=== PATIENT | male | born 1945 | race Caucasian/White ===

== ENCOUNTER 2022-08-25 07:55 | Day surgery (SDC) | payer OTHER ==
[~2022-08-25] VITALS: Ht 172.7 cm; Wt 104.0 kg
[2022-08-25] MEDS ORDERED: AMLO5 PO (08:25)
[2022-08-25] MEDS ORDERED: ATOR40TA PO (08:25)
[2022-08-25] MEDS ORDERED: GLIM2 PO ×2 (08:26)
[2022-08-25] MEDS ORDERED: LOSA50 PO (08:27)
[2022-08-25] MEDS ORDERED: METO100ER PO (08:27)
[2022-08-25] MEDS ORDERED: Isosorbide Mono30 MG PO (08:27)
[2022-08-25] MEDS ORDERED: METF500 PO (08:28)
--- NOTE | 2022-08-25 09:50 | NUR ---
PT TO RECOVERY ROOM POST PROCEDURE. PT AWAKE AND CONVERSING APPROPRIATELY; DENIES PAIN POST PROCEDURE. MONITOR SR 70'S, B/P 111/80, SPO2 69% RA, AFEBRILE. R RADIAL SITE NO SWELLING/HEMATOMA, TR BAND IN PLACE 12 ML AIR; RUE POSITIVE PLEUTH POST TR BAND PLACEMENT. PT TAKING COFFEE WITHOUT ISSUE.
--- NOTE | 2022-08-25 12:10 | NUR ---
P AMB IN ROOM WITHOUT ISSUE, SITE UNCHANGED. PT DRESSED SELF WITHOUT ISSUE, SITE UNCHANGED. TR BAND REMOVED, CLOTH DOT AND WRIST IMMOBILIER PLACED; IV REMOVED-CANNULA INTACT. PT DECLINED SLING.
--- NOTE | 2022-08-25 12:21 | NUR ---
PT AND FRIEND RECEIVED DISCHARGE INSTRUCTIONS, MED LIST, CD, AND AFTER CARE INSTRUCTIONS; VERBALIZED GOOD UNDERSTANDING. PT LEFT FACILITY VIA W/C, CONDITION STABLE.
== END 2022-08-25 12:21 | disposition home or self-care (01) ==
LOC: MHTC 07:55
DX: I35.0 Nonrheumatic aortic (valve) stenosis (principal); R07.9 Chest pain, unspecified; I25.10 Atherosclerotic heart disease of native coronary artery without angina pectoris; I25.2 Old myocardial infarction; I50.30 Unspecified diastolic (congestive) heart failure; E11.22 Type 2 diabetes mellitus with diabetic chronic kidney disease; N18.9 Chronic kidney disease, unspecified; E78.5 Hyperlipidemia, unspecified
CPT/HCPCS: 76937; 93454; 99152; A9270; C1769; C1887; C1894; J1644; J2250; J3010; J7030; J7050; Q9967

== ENCOUNTER → 2023-08-28 | Outpatient (CLI) | payer OTHER ==
[~2023-08-28] MED LIST: AMLO5 PO; ATOR40TA PO; GLIM2 PO; Isosorbide Mono30 MG PO; LOSA50 PO; METF500 PO; METO100ER PO
[2023-08-28 17:14] LABS: Microalb/Creat Ratio UR, Rand 332.639 mg/g (0.000-30.000)
== END ==
LOC: LAB 14:20 → LAB SHORT 14:20
PROVIDERS: Family Medicine
DX: E11.21 Type 2 diabetes mellitus with diabetic nephropathy (principal)
CPT/HCPCS: 82043; 82570

== ENCOUNTER 2024-02-13 16:06 | Inpatient (IN) | payer OTHER ==
[~2024-02-13] VITALS: Ht 172.7 cm; Wt 94.0 kg
[2024-02-13 16:53] LABS: BASOPHILS ABSOLUTE AUTO 0.03 K/mm3 (0.00-0.23); BASOPHILS PERCENT AUTO 0 % (0-2); EOSINOPHILS PERCENT AUTO 0 % (0-6); Hematocrit 25.8 % (37.0-53.0); Hemoglobin 8.5 g/dL (13.5-17.5); IMMATURE GRAN ABSOLUTE AUTO 0.25 K/mm3 (0.00-0.10); IMMATURE GRAN PERCENT AUTO 2 % (0-1); LYMPHOCYTES ABSOLUTE AUTO 0.43 K/mm3 (0.84-5.20); LYMPHOCYTES PERCENT AUTO 3 % (21-46); MONOCYTES ABSOLUTE AUTO 0.49 K/mm3 (0.16-1.47); MONOCYTES PERCENT AUTO 3 % (4-13); Mean Corpuscular HGB 28.1 pg (26.0-34.0); Mean Corpuscular HGB Conc 32.9 g/dL (31.5-36.5); Mean Corpuscular Volume 85 fL (80-100); Mean Platelet Volume 11.8 fL (9.1-12.4); NEUTROPHILS ABSOLUTE AUTO 15.46 K/mm3 (1.96-9.15); NEUTROPHILS PERCENT AUTO 93 % (41-73); Platelet Count 431 K/mm3 (150-400); RDW Coefficient Variation 16.1 % (11.7-14.2); RDW Standard Deviation 48.9 fL (35.1-46.3); Red Blood Cell Count 3.02 M/mm3 (4.30-5.90); White Blood Cell Count 16.66 K/mm3 (4.00-11.30)
[2024-02-13 17:20] LABS: Albumin, Blood 2.7 g/dL (3.4-5.0); Albumin/Globulin Ratio 0.5 (0.8-1.8); Bilirubin, Total 0.9 mg/dL (0.1-1.0); Bun/Creatinine Ratio 17.9 (12.0-20.0); Creatinine, Blood 2.63 mg/dL (0.60-1.20); Globulin, Blood 5.9 g/dL (2.2-4.0); Potassium, Blood 4.1 mmol/L (3.5-5.5); Total Protein, Blood 8.6 g/dL (6.4-8.2)
[2024-02-13] MEDS ORDERED: Dexamethasone Sod Phos 10 MG/ML 1ML VIAL IV ONE (18:15)
[2024-02-13] MEDS ORDERED: NS 500 ML IV SCH (18:15)
[2024-02-13] MEDS ORDERED: NS 1,000 ML IV SCH (19:40)
[2024-02-13] MEDS ORDERED: Ondansetron HCl 2 MG / ML 2ML Vial IV PRN (19:40)
[2024-02-13] MEDS ORDERED: Acetaminophen 325 MG TABLET PO PRN (19:40)
[2024-02-13] MEDS ORDERED: Remdesivir (EUA) 200 MG in NS 250 ML IV ONE (19:50)
[2024-02-13] MEDS ORDERED: NS 500 ML IV ONE (20:00)
[2024-02-13] MEDS ORDERED: Azithromycin 500 MG in NS 250 ML IV SCH (20:00)
[2024-02-13] MEDS ORDERED: CefTRIAXone Sodium 1,000 MG in NS 100 ML IV SCH (20:00)
[2024-02-13] MEDS ORDERED: NS 1,000 ML IV ONE (20:00)
[2024-02-13 20:16] LABS: Bicarbonate Venous 17.8 mmol/L (24.0-30.0); PCO2 Venous 33.8 mmHg (38-42); pH Blood Venous 7.32 (7.34-7.37)
[2024-02-13] MEDS ORDERED: LATA.005SO BOTHEYES (20:39)
[2024-02-13] MEDS ORDERED: AMARYL1 M1 PO (20:39)
[2024-02-13] MEDS ORDERED: METO25ER PO (20:41)
[2024-02-13] MEDS ORDERED: LOSA25 PO (20:41)
[2024-02-13] MEDS ORDERED: METO25 PO (20:42)
[2024-02-13] MEDS ORDERED: Metoprolol Succinate 50 MG TABCR PO SCH (21:00)
[2024-02-13 21:46] VITALS: BP 102/53
--- NOTE | 2024-02-13 22:07 | NUR ---
ADMIT NOTE 78 YR OLD MALE ADMITTED TO FLOOR FROM THE ED WITH DX OF COVID. ON O2 AT 4L/MIN PER NC. A/O X 4. ED RN REPORTED PT "MEAN TO STAFF" IN THE ED. PT MORE RECEPTIVE AT THIS TIME. ORIENTED TO USE OF CALL LIGHT. PT VOICED RECENT HEART SURGERY. VOICED HAD COVID BEFORE WELL. EASILY SOB WITH EXERTION. MED TELE STARTED. 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 TELE PLACED. CALL LIGHT IN REACH. WILL MONITOR. PLACED ON DROPLET ISOLATION.
[2024-02-14 03:09] VITALS: BP 87/60
--- NOTE | 2024-02-14 04:12 | NUR ---
BALLET SOLOIST SUMMARY PT WAS ADMITTED EARLIER IN THE SHIFT WITH DX OF COVID 19. ON 4L OXYGEN PER NC, SATS IN THE LOW 90'S WITH CONTINUOUS PULSE OX. ALERT AND ORIENTED. ED REPORTED PT WAS "MEAN TO STAFF" BUT PT HAS BEEN COOPERATIVE WITH TREATMENT AND RESPECTFUL TO STAFF WHILE ON THE FLOOR. NOTE BP TRENDING DOWN. LEGS ELEVATED. ASYMPTOMATIC. WILL RETAKE BP FOR FOLLOWUP. ON DROPELT PRECAUTIONS. ABLE TO REPOSITION SELF IN BED WITHOUT ASSIST. CALL LIGHT IN REACH, BED IN LOW POSITION AND BED ALARM ON FOR SAFETY. WILL MONITOR
[2024-02-14 04:27] VITALS: BP 116/67
[2024-02-14 06:01] LABS: BASOPHILS ABSOLUTE AUTO 0.01 K/mm3 (0.00-0.23); BASOPHILS PERCENT AUTO 0 % (0-2); EOSINOPHILS PERCENT AUTO 0 % (0-6); Hematocrit 25.8 % (37.0-53.0); Hemoglobin 8.4 g/dL (13.5-17.5); IMMATURE GRAN ABSOLUTE AUTO 0.19 K/mm3 (0.00-0.10); IMMATURE GRAN PERCENT AUTO 2 % (0-1); LYMPHOCYTES ABSOLUTE AUTO 0.38 K/mm3 (0.84-5.20); LYMPHOCYTES PERCENT AUTO 3 % (21-46); MONOCYTES PERCENT AUTO 2 % (4-13); Mean Corpuscular HGB 28.5 pg (26.0-34.0); Mean Corpuscular HGB Conc 32.6 g/dL (31.5-36.5); Mean Corpuscular Volume 88 fL (80-100); Mean Platelet Volume 10.5 fL (9.1-12.4); NEUTROPHILS ABSOLUTE AUTO 11.77 K/mm3 (1.96-9.15); NEUTROPHILS PERCENT AUTO 94 % (41-73); Platelet Count 354 K/mm3 (150-400); RDW Coefficient Variation 15.9 % (11.7-14.2); RDW Standard Deviation 49.6 fL (35.1-46.3); Red Blood Cell Count 2.95 M/mm3 (4.30-5.90); White Blood Cell Count 12.55 K/mm3 (4.00-11.30)
[2024-02-14 06:37] LABS: Albumin, Blood 2.4 g/dL (3.4-5.0); Albumin/Globulin Ratio 0.5 (0.8-1.8); Bilirubin, Total 0.8 mg/dL (0.1-1.0); Bun/Creatinine Ratio 21.5 (12.0-20.0); Calcium, Blood 8.5 mg/dL (8.5-10.1); Creatinine, Blood 2.47 mg/dL (0.60-1.20); Globulin, Blood 5.2 g/dL (2.2-4.0); Magnesium, Blood 2.5 mg/dL (1.6-2.4); Total Protein, Blood 7.6 g/dL (6.4-8.2)
[2024-02-14 06:44] LABS: BASOPHILS PERCENT MAN 0 % (0-2); EOSINOPHILS PERCENT MAN 0 % (0-6); LYMPHOCYTES ABSOLUTE MAN 0.62 K/mm3 (0.84-5.20); LYMPHOCYTES PERCENT MAN 5 % (21-46); MONOCYTES ABSOLUTE MAN 0.12 K/mm3 (0.16-1.47); MONOCYTES PERCENT MAN 1 % (4-13); NEUTROPHILS ABSOLUTE MAN 11.79 K/mm3 (1.96-9.15); SEG NEUTROPHILS PERCENT MAN 94 % (41-73); TOTAL CELLS COUNTED 100
[2024-02-14] MEDS ORDERED: Insulin Human Lispro 100 Units/ML 3ML Syringe SC SCH (07:30)
[2024-02-14] MEDS ORDERED: MethylPREDNISolone Sod Succ 40 MG VIAL IV SCH (08:00)
[2024-02-14 08:20] VITALS: BP 133/74
[2024-02-14] MEDS ORDERED: Atorvastatin 40 MG Tab PO SCH (09:00)
[2024-02-14] MEDS ORDERED: dexAMETHasone 4 MG TAB PO SCH (09:00)
[2024-02-14] MEDS ORDERED: Heparin Sodium,Porcine 5,000 UNIT/0.5 ML SDV SC SCH (09:00)
[2024-02-14 17:00] VITALS: BP 117/72
[2024-02-14] MEDS ORDERED: AmLODIPine Besylate 5 MG Tab PO SCH (18:00)
--- NOTE | 2024-02-14 19:11 | NUR ---
DAY SHIFT SUMMARY: NO ACUTE EVENTS TO REPORT THIS SHIFT. PT A&O X4; CALM AND COOPERATIVE WITH CARE. NO C/O PAIN THIS SHIFT. O2 @ 4L; LUNGS DIM THROUGHOUT; PT ON ROOM AIR AT HOME. TELE IN PLACE; PACED @ 105; SR IS UNDERLYING BASELINE. ENHANCED ISOLATION R/T COVID DIAGNOSIS. IV ABX CONTINUING. REPORT GIVEN TO ONCOMING RN.
[2024-02-14 20:43] VITALS: BP 144/65
[2024-02-14] MEDS ORDERED: Metoprolol Tartrate 25 MG Tab PO SCH (21:00)
[2024-02-14] MEDS ORDERED: Latanoprost 0.005% Opth Soln 2.5 ML BOTHEYES SCH (21:00)
[2024-02-14] MEDS ORDERED: Insulin Glargine-Yfgn 100 Unit/mL 3 ML SYR SC SCH (21:00)
--- NOTE | 2024-02-14 22:45 | NUR ---
CBG 330. 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 PATIENT ON SOLU-MEDROL. WCTM.
[2024-02-15 03:03] VITALS: BP 119/70
--- NOTE | 2024-02-15 04:04 | NUR ---
SHIFT SUMMARY PATIENT HAD NO ACUTE CHANGES. AXOX 4 AND BEDREST. ON 4L O2 NC UP FROM 3L O2 NC PER RT. STATING 87-90% 3L START OF SHIFT AND NOW 96% 4L ON CONTINUOUS PULSE OXIMETRY. CBG 330. TELE MONITOR PACED 103. ENHANCED PRECAUTIONS COVID-19+. VSS/AFEBRILE. DENIES CHEST PAIN AND N/V. CALL LIGHT IN REACH. BED IN LOWEST POSITION. WILL CONTINUE TO MONITOR UNTIL DAY SHIFT NURSE ASSUMES CARE.
[2024-02-15 07:49] VITALS: BP 140/72
[2024-02-15] MEDS ORDERED: Azithromycin 250 MG Tab PO SCH (09:00)
[2024-02-15] MEDS ORDERED: Losartan Potassium 25 MG Tab PO SCH (09:00)
[2024-02-15 15:41] VITALS: BP 125/72
--- NOTE | 2024-02-15 17:16 | NUR ---
PT IS AO AND COOPERATIVE OF CARE. PT USES URINAL AND CAN CALL APPROPRIATEY. PT CONINTUES ON 4.5L O2. PT DOES RAMBLE AND GET EMOTIONAL AT TIMES SOME OVER REMEMBERING HIS MOTHER AND OTHER TIMES OVER D DAY WHICH HE IS TO YOUNG TO HAVE ANY EXPERIENCE IN. NO DISTRESS NOTED AND CALL LIGHT WITHIN REACH. WILL CONTINUE TO MONITOR.
--- NOTE | 2024-02-15 17:42 | NUR ---
"SPIRITUAL CARE VISIT | ANIMAL TRAPPER REQUEST Pt. is awake in bed and welcomed my visit. Pt. had requested a rosary, so this hardware sales assistant brought him one, Facilitated a life review where Pt. shared his traditional jain belief . Pt. also verbalized that he had taked care of his mother until she . Listened with empathy and a calmning presence. Considered matters of mychal and belief. Pt. verbalized gratitude for the spiritual care visit and the rosary, though it was evident that the Pt. was hoping to see a resolution rep."
[2024-02-15 19:41] VITALS: BP 127/83
[2024-02-16 04:15] VITALS: BP 134/72
--- NOTE | 2024-02-16 04:58 | NUR ---
SHIFT SUMMARY: PATIENT IS A&OX4, VSS, REQUIRING 4L 02 VIA NC. OCCASSIONAL LOOSE COUGH. NO REPORTS OF PAIN OR DISCOMFORT. BLOOD GLUCOSE LEVEL AT HS WAS 364. ROSITA SANDY LUMBER SALVAGER WAS NOTIFIED. PROVIDER FEELS THE IV STERIODS ARE AFFECTING THE BLOOD GLUCOSE READINGS, CONTINUE TO MONITOR.
[2024-02-16 05:37] LABS: BASOPHILS ABSOLUTE AUTO 0.02 K/mm3 (0.00-0.23); BASOPHILS PERCENT AUTO 0 % (0-2); EOSINOPHILS PERCENT AUTO 0 % (0-6); Hematocrit 24.9 % (37.0-53.0); Hemoglobin 8.1 g/dL (13.5-17.5); IMMATURE GRAN ABSOLUTE AUTO 0.53 K/mm3 (0.00-0.10); IMMATURE GRAN PERCENT AUTO 3 % (0-1); LYMPHOCYTES ABSOLUTE AUTO 0.32 K/mm3 (0.84-5.20); LYMPHOCYTES PERCENT AUTO 2 % (21-46); MONOCYTES ABSOLUTE AUTO 0.51 K/mm3 (0.16-1.47); MONOCYTES PERCENT AUTO 3 % (4-13); Mean Corpuscular HGB 28.5 pg (26.0-34.0); Mean Corpuscular HGB Conc 32.5 g/dL (31.5-36.5); Mean Corpuscular Volume 88 fL (80-100); Mean Platelet Volume 10.9 fL (9.1-12.4); NEUTROPHILS ABSOLUTE AUTO 16.17 K/mm3 (1.96-9.15); NEUTROPHILS PERCENT AUTO 92 % (41-73); NRBC ABSOLUTE 0.03 K/mm3 (0.00-0.02); NRBC Auto 0.2 /100 WBC (0.0-0.2); Platelet Count 348 K/mm3 (150-400); RDW Coefficient Variation 16.1 % (11.7-14.2); RDW Standard Deviation 50.3 fL (35.1-46.3); Red Blood Cell Count 2.84 M/mm3 (4.30-5.90); White Blood Cell Count 17.55 K/mm3 (4.00-11.30)
[2024-02-16 06:07] LABS: Albumin, Blood 2.6 g/dL (3.4-5.0); Albumin/Globulin Ratio 0.5 (0.8-1.8); Bilirubin, Total 0.8 mg/dL (0.1-1.0); Calcium, Blood 8.3 mg/dL (8.5-10.1); Creatinine, Blood 2.2 mg/dL (0.60-1.20); Globulin, Blood 4.8 g/dL (2.2-4.0); Potassium, Blood 3.7 mmol/L (3.5-5.5); Total Protein, Blood 7.4 g/dL (6.4-8.2)
[2024-02-16 07:53] VITALS: BP 128/72
[2024-02-16] MEDS ORDERED: dexAMETHasone 4 MG TAB PO SCH (09:00)
[2024-02-16 15:12] VITALS: BP 138/79
[2024-02-16] MEDS ORDERED: PANTOPRAZOLE SO40 M2 PO (15:17)
[2024-02-16] MEDS ORDERED: BRIMONIDINE TART5 M2 LEFTEYE (15:22)
--- NOTE | 2024-02-16 18:21 | NUR ---
PT AOX4 AND COOPERATIVE OF CARE. PT DOING BETTER NOW ON 2LO2 AND SATING 90s. PT WORKED WITH PT AND WAS A ONE PERSON WITH GAITBELT. PT ABLE TO MAKE NEED KNOWN. CALL LIGHT WITHIN REACH WILL CONTINUE TO MONITOR.
[2024-02-16 20:10] VITALS: BP 138/80
[2024-02-16] MEDS ORDERED: NS 250 ML IV PRN (20:15)
[2024-02-16] MEDS ORDERED: Insulin Human Lispro 100 Units/ML 3ML Syringe SC ONE (21:05)
--- NOTE | 2024-02-17 04:04 | NUR ---
HS CBG 390. PT ASYMPTOMATIC AND HOSPITALIST NOTIFIED. ORDER GIVEN FOR 6 UNITS FAST ACTING INSULIN TO BE ADMINISTERED AND RECHECK CBG IN 2 HOURS. UPON RECHECK CBG 284.
[2024-02-17 04:49] VITALS: BP 134/75
--- NOTE | 2024-02-17 04:54 | NUR ---
SHIFT SUMMARY NOC PT A/O X 4. VERY [place]. PLEASANT AND COOPERATIVE WITH CARE. VSS. HS CBG 390, PT ASYMPTOMATIC AND HOSPITALIST NOTIFIED BECAUSE PT HAS ONLY AC COVERAGE FOR HUMALOG AND ONE TIME DOSE OF 6 UNITS SHJRT ACTING INSULIN GIVEN. UPON RECHECK 2 HOURS LATER CBG 284. PT ON 3.5L/NC MAINTAINING SPO2 >92% ON BIOX. IN ENHANCED ISOLATION FOR COVID 19. PT ON TELE V PACED IN 90'S. PT CURRENTLY RESTING WITH BED IN LOWEST POSITION, AND CALL LIGHT WITHIN REACH.
[2024-02-17 05:07] LABS: Hematocrit 23.7 % (37.0-53.0); Hemoglobin 7.5 g/dL (13.5-17.5); Mean Corpuscular HGB Conc 31.6 g/dL (31.5-36.5); Mean Corpuscular Volume 88 fL (80-100); Mean Platelet Volume 9.8 fL (9.1-12.4); NRBC ABSOLUTE 0.02 K/mm3 (0.00-0.02); NRBC Auto 0.1 /100 WBC (0.0-0.2); Platelet Count 259 K/mm3 (150-400); RDW Coefficient Variation 16.3 % (11.7-14.2); RDW Standard Deviation 51.6 fL (35.1-46.3); Red Blood Cell Count 2.68 M/mm3 (4.30-5.90); White Blood Cell Count 13.58 K/mm3 (4.00-11.30)
[2024-02-17 05:30] LABS: Bun/Creatinine Ratio 24.2 (12.0-20.0); Creatinine, Blood 1.9 mg/dL (0.60-1.20); Potassium, Blood 3.8 mmol/L (3.5-5.5)
[2024-02-17 05:34] LABS: BAND PERCENT MAN 3 % (0-8); BASOPHILS PERCENT MAN 0 % (0-2); EOSINOPHILS PERCENT MAN 0 % (0-6); LYMPHOCYTES ABSOLUTE MAN 0.13 K/mm3 (0.84-5.20); LYMPHOCYTES PERCENT MAN 1 % (21-46); METAMYELOCYTE ABSOLUTE MAN 0.13 K/mm3 (0.00-0.00); METAMYELOCYTE PERCENT MAN 1 % (0-0); MONOCYTES PERCENT MAN 3 % (4-13); MYELOCYTE ABSOLUTE MAN 0.27 K/mm3 (0.00-0.00); MYELOCYTE PERCENT MAN 2 % (0-0); NEUTROPHILS ABSOLUTE MAN 12.62 K/mm3 (1.96-9.15); SEG NEUTROPHILS PERCENT MAN 90 % (41-73); TOTAL CELLS COUNTED 100
[2024-02-17 07:29] VITALS: BP 117/69
[2024-02-17] MEDS ORDERED: Insulin Glargine-Yfgn 100 Unit/mL 3 ML SYR SC SCH (14:00)
[2024-02-17] MEDS ORDERED: Piperacillin/Tazobactam Sod 4.5 GM in NS 100 ML IV SCH (14:00)
[2024-02-17] MEDS ORDERED: Vancomycin HCL 2,000 MG in NS 500 ML IV ONE (15:15)
[2024-02-17 15:48] VITALS: BP 121/78
[2024-02-17] MEDS ORDERED: Insulin NPH 100 Unit / ML 10ML Vial SC SCH (16:30)
[2024-02-17] MEDS ORDERED: Insulin Human Lispro 100 Units/ML 3ML Syringe SC SCH (16:30)
--- NOTE | 2024-02-17 17:42 | NUR ---
SHIFT SUMMARY PATIENT ABLE TO SIT IN CHAIR THIS SHIFT. URINATING IN URINAL. NO C/O PAIN. ON 8 LITERS O2 MOST OF SHIFT. PULSE OX FUNCTIONING OUTSIDE ROOM. CONTINUES ON ISOLATION FOR COVID. MRSA CX SENT. CHEST X RAY PERFORMED. ABX CHANGED, ZOSYN AND VANCO STARTED. CHANGES MADE TO INSULIN WELL. PATIENT A/OX4. CALL LIGHT IN REACH. ABLE TO MAKE NEEDS KNOWN.
[2024-02-17 21:26] VITALS: BP 136/73
--- NOTE | 2024-02-18 03:08 | NUR ---
SHIFT SUMMARY NOC PT A/OX 4. PLEASANT AND COOPERATIVE WITH CARE. VSS. HS CBG 347 AND 4 UNITS SHORT ACTING INSULING GIVEN ALONG WITH 10 UNITS NPH AFTER HOSPITALIST NOTIFIED THAT PRIOR DOSE OF NPH HAD NOT BEEN GIVEN DUE TO IT BEING UNAVAILABLE EARLIER. PT O2 HAS BEEN DECREASED FROM 8L TO 6L/HFNC AND MAINTAINING SPO2 >94%. PT HAS NOT HAD ANY HYPOXIC EPISODES DURING SHIFT. AWAITING AM HEMOGLOBIN DUE TO YESTERDAYS BEING 7.5. ON TELE V-PACED IN 80'S. ON ENHANCED ISOLATION FOR COVID 19. PT CURRENTLY RESTING WITH BED IN LOWEST POSITION, AND CALL LIGHT WITHIN REACH.
[2024-02-18 04:44] VITALS: BP 142/78
[2024-02-18 05:32] LABS: Hematocrit 27.4 % (37.0-53.0); Hemoglobin 8.5 g/dL (13.5-17.5); Mean Corpuscular Volume 90 fL (80-100); Mean Platelet Volume 10.3 fL (9.1-12.4); NRBC ABSOLUTE 0.05 K/mm3 (0.00-0.02); NRBC Auto 0.3 /100 WBC (0.0-0.2); Platelet Count 276 K/mm3 (150-400); RDW Coefficient Variation 16.8 % (11.7-14.2); RDW Standard Deviation 52.9 fL (35.1-46.3); Red Blood Cell Count 3.04 M/mm3 (4.30-5.90); White Blood Cell Count 15.01 K/mm3 (4.00-11.30)
[2024-02-18 05:53] LABS: BAND PERCENT MAN 1 % (0-8); BASOPHILS PERCENT MAN 0 % (0-2); EOSINOPHILS PERCENT MAN 0 % (0-6); LYMPHOCYTES % ATYPICAL MANUAL 1 % (0-0); LYMPHOCYTES ABSOLUTE MAN 0.45 K/mm3 (0.84-5.20); LYMPHOCYTES PERCENT MAN 2 % (21-46); METAMYELOCYTE ABSOLUTE MAN 0.15 K/mm3 (0.00-0.00); METAMYELOCYTE PERCENT MAN 1 % (0-0); MONOCYTES ABSOLUTE MAN 0.15 K/mm3 (0.16-1.47); MONOCYTES PERCENT MAN 1 % (4-13); MYELOCYTE PERCENT MAN 2 % (0-0); NEUTROPHILS ABSOLUTE MAN 13.95 K/mm3 (1.96-9.15); SEG NEUTROPHILS PERCENT MAN 92 % (41-73); TOTAL CELLS COUNTED 100
[2024-02-18 06:12] LABS: Albumin, Blood 2.8 g/dL (3.4-5.0); Albumin/Globulin Ratio 0.6 (0.8-1.8); Bilirubin, Total 1.1 mg/dL (0.1-1.0); Bun/Creatinine Ratio 22.5 (12.0-20.0); Calcium, Blood 8.1 mg/dL (8.5-10.1); Creatinine, Blood 1.73 mg/dL (0.60-1.20); Globulin, Blood 4.4 g/dL (2.2-4.0); Potassium, Blood 3.9 mmol/L (3.5-5.5); Total Protein, Blood 7.2 g/dL (6.4-8.2)
[2024-02-18 07:39] VITALS: BP 126/72
[2024-02-18 15:26] VITALS: BP 122/72
--- NOTE | 2024-02-18 16:19 | NUR ---
CONTACTED DR MCCALLUM FOR HYPERGLYCEMIA. ORDERS RECEIVED. PATIENT ASYMPTOMATIC AT THIS TIME.
[2024-02-18] MEDS ORDERED: Insulin NPH 100 Unit / ML 10ML Vial SC SCH (16:30)
--- NOTE | 2024-02-18 16:30 | NUR ---
SHIFT SUMMARY PATIENT UP TO CHAIR AND AMBULATING SHORT DISTANCES IN ROOM WITH SBA. O2 AT 6 LITERS NC, PULSE OX OUTSIDE ROOM FUNCTIONING. A/OX4, NO COMPLAINTS OF PAIN. CONTINUES TO HAVE EXERTIONAL DYSPNEA. CHANGES MADE TO INSULIN REGIMEN DUE TO HYPERGLYCEMIA PER DOC ORDERS, SEE MAR. PATIENT CONTINUES TO REFUSE ANTICOAGULANT, VERBAL EDUCATION PROVIDED, ACKNOWLEDGED RISKS. ABLE TO MAKE NEEDS KNOWN. CALL LIGHT IN REACH, CARES ONGOING. PATIENT TEARFUL THIS SHIFT, MAKING STATEMENTS THAT HE DOESN'T CARE IF HE DIES, THAT HE DOESN'T THINK HE WILL MAKE IT PAST THIS HOSPITALIZATION, THAT HE WANTS TO GO SEE HIS RECENTLY MOTHER. HE DECLINED PASTORAL CARE AT THIS TIME.
[2024-02-18 20:24] VITALS: BP 120/66
[2024-02-19 04:44] VITALS: BP 112/57
[2024-02-19 05:44] LABS: BASOPHILS ABSOLUTE AUTO 0.03 K/mm3 (0.00-0.23); BASOPHILS PERCENT AUTO 0 % (0-2); EOSINOPHILS ABSOLUTE AUTO 0.03 K/mm3 (0.00-0.68); EOSINOPHILS PERCENT AUTO 0 % (0-6); Hematocrit 27.4 % (37.0-53.0); Hemoglobin 8.5 g/dL (13.5-17.5); IMMATURE GRAN ABSOLUTE AUTO 0.39 K/mm3 (0.00-0.10); IMMATURE GRAN PERCENT AUTO 2 % (0-1); LYMPHOCYTES PERCENT AUTO 2 % (21-46); MONOCYTES ABSOLUTE AUTO 0.45 K/mm3 (0.16-1.47); MONOCYTES PERCENT AUTO 3 % (4-13); Mean Corpuscular HGB 28.2 pg (26.0-34.0); Mean Corpuscular Volume 91 fL (80-100); Mean Platelet Volume 11.8 fL (9.1-12.4); NEUTROPHILS ABSOLUTE AUTO 15.67 K/mm3 (1.96-9.15); NEUTROPHILS PERCENT AUTO 92 % (41-73); NRBC ABSOLUTE 0.05 K/mm3 (0.00-0.02); NRBC Auto 0.3 /100 WBC (0.0-0.2); Platelet Count 283 K/mm3 (150-400); RDW Coefficient Variation 17.2 % (11.7-14.2); Red Blood Cell Count 3.01 M/mm3 (4.30-5.90); White Blood Cell Count 16.97 K/mm3 (4.00-11.30)
--- NOTE | 2024-02-19 05:54 | NUR ---
SHIFT SUMMARY NOC PT A/O X 4. PLEASANT AND COOPERATIVE WITH CARE. VSS. HS CBG 322 AND 4 UNITS SHORT ACTING GIVEN PER SLIDING SCALE. ON O2 4L/NC MAINTAINING SPO2 >94%. PT BREATHING IS NOT LABORED LIKE THE PREVIOUS NIGHT. PT STILL RECEIVING IV ABX FOR BACTERIAL PNA. PT IS ABLE TO AMBULATE IN ROOM MUCH BETTER AND WITHOUT ASSISTANCE. ON TELE V-PACED IN 90'S. PT CURRENTLY RESTING WITH BED IN LOWEST POSITION, AND CALL LIGHT WITHIN REACH.
[2024-02-19 06:05] LABS: BASOPHILS PERCENT MAN 0 % (0-2); EOSINOPHILS PERCENT MAN 0 % (0-6); LYMPHOCYTES ABSOLUTE MAN 0.33 K/mm3 (0.84-5.20); LYMPHOCYTES PERCENT MAN 2 % (21-46); MONOCYTES PERCENT MAN 3 % (4-13); NEUTROPHILS ABSOLUTE MAN 16.12 K/mm3 (1.96-9.15); SEG NEUTROPHILS PERCENT MAN 95 % (41-73); TOTAL CELLS COUNTED 100
[2024-02-19 06:06] LABS: Albumin, Blood 2.8 g/dL (3.4-5.0); Albumin/Globulin Ratio 0.7 (0.8-1.8); Bilirubin, Total 1.4 mg/dL (0.1-1.0); Bun/Creatinine Ratio 21.2 (12.0-20.0); Calcium, Blood 8.4 mg/dL (8.5-10.1); Creatinine, Blood 1.89 mg/dL (0.60-1.20); Globulin, Blood 4.3 g/dL (2.2-4.0); Potassium, Blood 3.9 mmol/L (3.5-5.5); Total Protein, Blood 7.1 g/dL (6.4-8.2)
[2024-02-19 07:24] VITALS: BP 147/66
--- NOTE | 2024-02-19 09:00 | NUR ---
pt sitting up in a chair, got himself to bed easily, a/ox4, [place], cooperative with care, follows commands well, denies pain, is resistant to using call system for assistance, lungs are clear in upper cifuentes, dim in bases, resp even and unlabored, no cough noted, hrr, paced rhythm, no edema noted, ppp+1, cpa refill <3 sec, vs stable afebrile, piv to rfa site is clear and patent, btx4, abd flat soft nontender, voids via somers cath, draining clear yellow urine, skin c/w/d, elma, brianna, call light in reach.
[2024-02-19 15:30] VITALS: BP 105/64
--- NOTE | 2024-02-19 18:16 | NUR ---
pt has been up indep this shift, no complaints of pain, maintaing sats on 3 liters 02 via n/c, no acute changes this shift. call light in reach.
[2024-02-19 20:24] VITALS: BP 104/57
[2024-02-19] MEDS ORDERED: Insulin Glargine-Yfgn 100 Unit/mL 3 ML SYR SC ONE (23:40)
[2024-02-20 04:48] VITALS: BP 117/75
[2024-02-20 06:12] LABS: BASOPHILS ABSOLUTE AUTO 0.01 K/mm3 (0.00-0.23); BASOPHILS PERCENT AUTO 0 % (0-2); EOSINOPHILS ABSOLUTE AUTO 0.04 K/mm3 (0.00-0.68); EOSINOPHILS PERCENT AUTO 0 % (0-6); Hematocrit 25.6 % (37.0-53.0); Hemoglobin 8.1 g/dL (13.5-17.5); IMMATURE GRAN ABSOLUTE AUTO 0.29 K/mm3 (0.00-0.10); IMMATURE GRAN PERCENT AUTO 2 % (0-1); LYMPHOCYTES ABSOLUTE AUTO 0.42 K/mm3 (0.84-5.20); LYMPHOCYTES PERCENT AUTO 3 % (21-46); MONOCYTES ABSOLUTE AUTO 0.46 K/mm3 (0.16-1.47); MONOCYTES PERCENT AUTO 3 % (4-13); Mean Corpuscular HGB 28.2 pg (26.0-34.0); Mean Corpuscular HGB Conc 31.6 g/dL (31.5-36.5); Mean Corpuscular Volume 89 fL (80-100); NEUTROPHILS ABSOLUTE AUTO 13.46 K/mm3 (1.96-9.15); NEUTROPHILS PERCENT AUTO 92 % (41-73); NRBC ABSOLUTE 0.04 K/mm3 (0.00-0.02); NRBC Auto 0.3 /100 WBC (0.0-0.2); Platelet Count 221 K/mm3 (150-400); RDW Standard Deviation 55.6 fL (35.1-46.3); Red Blood Cell Count 2.87 M/mm3 (4.30-5.90); White Blood Cell Count 14.68 K/mm3 (4.00-11.30)
--- NOTE | 2024-02-20 06:19 | NUR ---
Shift Summary Pt on 2L O2 NC t/o the night maintaning saturation > 89%. On tele, V paced 80-90s, no events. No c/o pain, nausea or discomfort. Blood sugar was 393 at 2019, medicated per sliding scale and I called the hospitalist who put in a one time order for 15u glargine. AOx4, independent in the room, slept well t/o most of the night.
[2024-02-20 06:42] LABS: Albumin, Blood 2.6 g/dL (3.4-5.0); Albumin/Globulin Ratio 0.6 (0.8-1.8); Bilirubin, Total 1.4 mg/dL (0.1-1.0); Bun/Creatinine Ratio 19.4 (12.0-20.0); Calcium, Blood 8.2 mg/dL (8.5-10.1); Creatinine, Blood 1.91 mg/dL (0.60-1.20); Globulin, Blood 4.1 g/dL (2.2-4.0); Potassium, Blood 4.1 mmol/L (3.5-5.5); Total Protein, Blood 6.7 g/dL (6.4-8.2)
[2024-02-20 06:49] LABS: BASOPHILS PERCENT MAN 0 % (0-2); EOSINOPHILS PERCENT MAN 0 % (0-6); LYMPHOCYTES ABSOLUTE MAN 0.29 K/mm3 (0.84-5.20); LYMPHOCYTES PERCENT MAN 2 % (21-46); MONOCYTES ABSOLUTE MAN 0.14 K/mm3 (0.16-1.47); MONOCYTES PERCENT MAN 1 % (4-13); NEUTROPHILS ABSOLUTE MAN 14.23 K/mm3 (1.96-9.15); SEG NEUTROPHILS PERCENT MAN 97 % (41-73); TOTAL CELLS COUNTED 100
[2024-02-20 07:31] VITALS: BP 110/72
[2024-02-20] MEDS ORDERED: AMOCLA875 PO (15:59)
--- NOTE | 2024-02-20 16:38 | NUR ---
DISCHARGE NOTE PT DISCHARGED TO HOME WITH HOME-HEALTH, PICKED UP BY A FAMILY MEMEBER. TAKEN TO HIS VEHICLE BY THE COMMUTATOR V RING ASSEMBLER VIA WHEELCHAIR. IV REMOVED. TELE RETURNED. PERSONAL BELONGINGS RETURNED. DISCHARGE EDUCATION AND INFORMATION PROVIDED. MEDICATIONS FAXED TO THE PHARMACY OF HIS CHOICE.
== END 2024-02-20 16:35 | disposition home health service (06) | DRG 871 ==
LOC: ER 16:06 → MEDS 19:35
PROVIDERS: Internal Medicine; Nurse Practitioner Acute Care; Student in an Organized Health Care Education/Training Program; ADMIT Internal Medicine
PROC: 3E0DX3Z Introduction of Anti-inflammatory into Mouth and Pharynx, External Approach (ICD-10-PCS; principal; 2024-02-13)
PROC: 3E03329 Introduction of Other Anti-infective into Peripheral Vein, Percutaneous Approach (ICD-10-PCS; 2024-02-13)
DX: A41.89 Other specified sepsis (principal); J12.82 Pneumonia due to coronavirus disease 2019; U07.1 COVID-19; J96.01 Acute respiratory failure with hypoxia; J15.9 Unspecified bacterial pneumonia; N17.9 Acute kidney failure, unspecified; E87.1 Hypo-osmolality and hyponatremia; E87.20 Acidosis, unspecified; Z66 Do not resuscitate; N18.32 Chronic kidney disease, stage 3b; E11.22 Type 2 diabetes mellitus with diabetic chronic kidney disease; E78.5 Hyperlipidemia, unspecified; I12.9 Hypertensive chronic kidney disease with stage 1 through stage 4 chronic kidney disease, or unspecified chronic kidney disease; I25.10 Atherosclerotic heart disease of native coronary artery without angina pectoris; Z95.1 Presence of aortocoronary bypass graft; Z79.84 Long term (current) use of oral hypoglycemic drugs; Z79.899 Other long term (current) drug therapy; Z88.8 Allergy status to other drugs, medicaments and biological substances; Z99.81 Dependence on supplemental oxygen; I48.91 Unspecified atrial fibrillation
CPT/HCPCS: 36415; 71045; 71046; 80048; 80053; 82803; 82947; 83605; 83690; 83735; 84145; 85025; 87040; 93005; 93010; 94761; 94762; 96374; 97110; 97161; 97530; 99285-25; A9270; J0456; J0696; J1100; J1644; J1815; J2543; J2919; J3370; J7030; J7040; J7050

== ENCOUNTER 2024-03-27 03:39 | Day surgery (SDC) | payer OTHER ==
[~2024-03-27 03:39] MED LIST changes: +AMARYL1 M1 PO; +AMOCLA875 PO; +BRIMONIDINE TART5 M2 LEFTEYE; +LATA.005SO BOTHEYES; +LOSA25 PO; +METO25 PO; +METO25ER PO; +PANTOPRAZOLE SO40 M2 PO
[2024-03-27] MEDS ORDERED: Epoetin Alfa-EPBX 10,000 Unit/ML 1ML Vial SC SCH (06:00)
[2024-03-27 11:20] VITALS: BP 110/63
== END 2024-03-27 11:25 | disposition home or self-care (01) ==
LOC: ATC 03:39
DX: I12.9 Hypertensive chronic kidney disease with stage 1 through stage 4 chronic kidney disease, or unspecified chronic kidney disease (principal); E11.22 Type 2 diabetes mellitus with diabetic chronic kidney disease; N18.32 Chronic kidney disease, stage 3b; D63.1 Anemia in chronic kidney disease; N25.81 Secondary hyperparathyroidism of renal origin; E78.5 Hyperlipidemia, unspecified; D47.2 Monoclonal gammopathy; I25.10 Atherosclerotic heart disease of native coronary artery without angina pectoris; Z95.1 Presence of aortocoronary bypass graft; Z87.891 Personal history of nicotine dependence; Z88.8 Allergy status to other drugs, medicaments and biological substances; Z79.84 Long term (current) use of oral hypoglycemic drugs; Z79.899 Other long term (current) drug therapy
CPT/HCPCS: 96372; Q5106

== ENCOUNTER 2024-04-17 04:26 | Day surgery (SDC) | payer OTHER ==
[2024-04-17] MEDS ORDERED: Epoetin Alfa-EPBX 10,000 Unit/ML 1ML Vial SC SCH (08:00)
[2024-04-17 13:26] VITALS: BP 130/65
== END 2024-04-17 13:30 | disposition home or self-care (01) ==
LOC: ATC 04:26
DX: I12.9 Hypertensive chronic kidney disease with stage 1 through stage 4 chronic kidney disease, or unspecified chronic kidney disease (principal); E11.22 Type 2 diabetes mellitus with diabetic chronic kidney disease; N18.32 Chronic kidney disease, stage 3b; D63.1 Anemia in chronic kidney disease; D47.2 Monoclonal gammopathy; I25.10 Atherosclerotic heart disease of native coronary artery without angina pectoris; E78.5 Hyperlipidemia, unspecified; Z87.891 Personal history of nicotine dependence; Z88.8 Allergy status to other drugs, medicaments and biological substances; Z79.84 Long term (current) use of oral hypoglycemic drugs; Z79.82 Long term (current) use of aspirin; Z79.899 Other long term (current) drug therapy
CPT/HCPCS: 96372; Q5106

== ENCOUNTER 2024-05-21 01:05 | Day surgery (SDC) | payer OTHER ==
[2024-05-21] MEDS ORDERED: Epoetin Alfa-EPBX 10,000 Unit/ML 1ML Vial SC SCH (06:00)
[2024-05-21 11:16] VITALS: BP 123/62
== END 2024-05-21 11:25 | disposition home or self-care (01) ==
LOC: ATC 01:05
DX: I12.9 Hypertensive chronic kidney disease with stage 1 through stage 4 chronic kidney disease, or unspecified chronic kidney disease (principal); E11.22 Type 2 diabetes mellitus with diabetic chronic kidney disease; N18.32 Chronic kidney disease, stage 3b; D63.1 Anemia in chronic kidney disease; I25.10 Atherosclerotic heart disease of native coronary artery without angina pectoris; E78.5 Hyperlipidemia, unspecified; Z87.891 Personal history of nicotine dependence; Z95.0 Presence of cardiac pacemaker; Z79.82 Long term (current) use of aspirin; Z79.84 Long term (current) use of oral hypoglycemic drugs; Z79.899 Other long term (current) drug therapy; Z88.8 Allergy status to other drugs, medicaments and biological substances
CPT/HCPCS: 96372; Q5106

== ENCOUNTER 2024-06-21 04:11 | Day surgery (SDC) | payer OTHER ==
[2024-06-21] MEDS ORDERED: Epoetin Alfa-EPBX 10,000 Unit/ML 1ML Vial SC SCH (06:00)
[2024-06-21 11:02] VITALS: BP 171/73
== END 2024-06-21 11:08 | disposition home or self-care (01) ==
LOC: ATC 04:11
DX: I12.9 Hypertensive chronic kidney disease with stage 1 through stage 4 chronic kidney disease, or unspecified chronic kidney disease (principal); E11.22 Type 2 diabetes mellitus with diabetic chronic kidney disease; N18.32 Chronic kidney disease, stage 3b; D63.1 Anemia in chronic kidney disease; N25.81 Secondary hyperparathyroidism of renal origin; I25.10 Atherosclerotic heart disease of native coronary artery without angina pectoris; E78.5 Hyperlipidemia, unspecified; D47.2 Monoclonal gammopathy; Z87.891 Personal history of nicotine dependence; Z79.82 Long term (current) use of aspirin; Z79.84 Long term (current) use of oral hypoglycemic drugs; Z79.899 Other long term (current) drug therapy; Z88.8 Allergy status to other drugs, medicaments and biological substances; Z95.0 Presence of cardiac pacemaker; Z95.1 Presence of aortocoronary bypass graft; Z98.52 Vasectomy status
CPT/HCPCS: 96372; Q5106

== ENCOUNTER 2024-07-19 06:51 | Day surgery (SDC) | payer OTHER ==
[~2024-07-19 06:51] MED LIST changes: +Epoetin Alfa-EPBX 10,000 Unit/ML 1ML Vial SC SCH
[2024-07-19 11:19] VITALS: BP 136/64
== END 2024-07-19 11:19 | disposition home or self-care (01) ==
LOC: ATC 06:51
DX: I12.9 Hypertensive chronic kidney disease with stage 1 through stage 4 chronic kidney disease, or unspecified chronic kidney disease (principal); E11.22 Type 2 diabetes mellitus with diabetic chronic kidney disease; N18.32 Chronic kidney disease, stage 3b; D63.1 Anemia in chronic kidney disease; I25.10 Atherosclerotic heart disease of native coronary artery without angina pectoris; D47.2 Monoclonal gammopathy; Z87.891 Personal history of nicotine dependence; Z95.0 Presence of cardiac pacemaker; Z95.1 Presence of aortocoronary bypass graft; Z79.82 Long term (current) use of aspirin; Z79.84 Long term (current) use of oral hypoglycemic drugs; Z79.899 Other long term (current) drug therapy; Z88.8 Allergy status to other drugs, medicaments and biological substances; Z98.52 Vasectomy status
CPT/HCPCS: 96372; Q5106

== ENCOUNTER 2024-08-09 03:39 | Day surgery (SDC) | payer OTHER ==
[~2024-08-09 03:39] MED LIST changes: +EPOETIN ALFA EPBX 40000 UNIT/ML SC SCH; -Epoetin Alfa-EPBX 10,000 Unit/ML 1ML Vial SC SCH
[2024-08-09] MEDS ORDERED: EPOETIN ALFA EPBX 40000 UNIT/ML SC SCH (06:00)
[2024-08-09] MEDS ORDERED: Epoetin Alfa-EPBX 10,000 Unit/ML 1ML Vial SC SCH (07:15)
[2024-08-09 08:15] VITALS: BP 149/64
== END 2024-08-09 08:17 | disposition home or self-care (01) ==
LOC: ATC 03:39
DX: I12.9 Hypertensive chronic kidney disease with stage 1 through stage 4 chronic kidney disease, or unspecified chronic kidney disease (principal); E11.22 Type 2 diabetes mellitus with diabetic chronic kidney disease; N18.32 Chronic kidney disease, stage 3b; D63.1 Anemia in chronic kidney disease; N25.81 Secondary hyperparathyroidism of renal origin; I25.10 Atherosclerotic heart disease of native coronary artery without angina pectoris; E78.5 Hyperlipidemia, unspecified; Z95.1 Presence of aortocoronary bypass graft; Z87.891 Personal history of nicotine dependence; Z79.82 Long term (current) use of aspirin; Z79.84 Long term (current) use of oral hypoglycemic drugs; Z79.899 Other long term (current) drug therapy
CPT/HCPCS: 96372; Q5106

== ENCOUNTER 2024-08-30 03:37 | Day surgery (SDC) | payer OTHER ==
[~2024-08-30 03:37] MED LIST changes: -EPOETIN ALFA EPBX 40000 UNIT/ML SC SCH
[2024-08-30] MEDS ORDERED: Epoetin Alfa-EPBX 10,000 Unit/ML 1ML Vial SC SCH (06:00)
== END 2024-08-30 08:16 | disposition home or self-care (01) ==
LOC: ATC 03:37
DX: E11.22 Type 2 diabetes mellitus with diabetic chronic kidney disease (principal); E11.21 Type 2 diabetes mellitus with diabetic nephropathy; I12.9 Hypertensive chronic kidney disease with stage 1 through stage 4 chronic kidney disease, or unspecified chronic kidney disease; N18.32 Chronic kidney disease, stage 3b; D63.1 Anemia in chronic kidney disease; I25.10 Atherosclerotic heart disease of native coronary artery without angina pectoris; E78.5 Hyperlipidemia, unspecified; I10 Essential (primary) hypertension; Z95.1 Presence of aortocoronary bypass graft; Z79.82 Long term (current) use of aspirin; Z79.899 Other long term (current) drug therapy; Z88.8 Allergy status to other drugs, medicaments and biological substances; Z87.891 Personal history of nicotine dependence; N25.81 Secondary hyperparathyroidism of renal origin; Z79.84 Long term (current) use of oral hypoglycemic drugs
CPT/HCPCS: 36415; 80053; 80061; 83036; 85025; 96372; Q5106

== ENCOUNTER 2024-09-20 03:17 | Day surgery (SDC) | payer OTHER ==
[2024-09-20] MEDS ORDERED: Epoetin Alfa-EPBX 10,000 Unit/ML 1ML Vial SC SCH (06:00)
[2024-09-20 08:05] VITALS: BP 141/70
== END 2024-09-20 08:11 | disposition home or self-care (01) ==
LOC: ATC 03:17
DX: I12.9 Hypertensive chronic kidney disease with stage 1 through stage 4 chronic kidney disease, or unspecified chronic kidney disease (principal); E11.22 Type 2 diabetes mellitus with diabetic chronic kidney disease; N18.32 Chronic kidney disease, stage 3b; D63.1 Anemia in chronic kidney disease; N25.81 Secondary hyperparathyroidism of renal origin; I25.10 Atherosclerotic heart disease of native coronary artery without angina pectoris; Z87.891 Personal history of nicotine dependence; Z88.8 Allergy status to other drugs, medicaments and biological substances; Z79.82 Long term (current) use of aspirin; Z79.899 Other long term (current) drug therapy
CPT/HCPCS: 96372; Q5106

== ENCOUNTER 2024-10-10 01:13 | Day surgery (SDC) | payer OTHER ==
[2024-10-10] MEDS ORDERED: Epoetin Alfa-EPBX 10,000 Unit/ML 1ML Vial SC SCH (06:00)
[2024-10-10 08:11] VITALS: BP 139/69
== END 2024-10-10 08:17 | disposition home or self-care (01) ==
LOC: ATC 01:13
DX: I12.9 Hypertensive chronic kidney disease with stage 1 through stage 4 chronic kidney disease, or unspecified chronic kidney disease (principal); E11.22 Type 2 diabetes mellitus with diabetic chronic kidney disease; N18.32 Chronic kidney disease, stage 3b; D63.1 Anemia in chronic kidney disease; N25.81 Secondary hyperparathyroidism of renal origin; E78.5 Hyperlipidemia, unspecified; I25.10 Atherosclerotic heart disease of native coronary artery without angina pectoris; Z87.891 Personal history of nicotine dependence; Z88.8 Allergy status to other drugs, medicaments and biological substances; Z79.82 Long term (current) use of aspirin; Z79.84 Long term (current) use of oral hypoglycemic drugs; Z79.899 Other long term (current) drug therapy
CPT/HCPCS: 96372; Q5106

== ENCOUNTER 2024-10-30 03:16 | Day surgery (SDC) | payer OTHER ==
[2024-10-30] MEDS ORDERED: Epoetin Alfa-EPBX 10,000 Unit/ML 1ML Vial SC SCH (06:00)
[2024-10-30 08:33] VITALS: BP 127/74
== END 2024-10-30 08:40 | disposition home or self-care (01) ==
LOC: ATC 03:16
DX: E11.22 Type 2 diabetes mellitus with diabetic chronic kidney disease (principal); I12.9 Hypertensive chronic kidney disease with stage 1 through stage 4 chronic kidney disease, or unspecified chronic kidney disease; N18.32 Chronic kidney disease, stage 3b; D63.1 Anemia in chronic kidney disease; I25.10 Atherosclerotic heart disease of native coronary artery without angina pectoris; E78.5 Hyperlipidemia, unspecified; N25.81 Secondary hyperparathyroidism of renal origin; Z95.0 Presence of cardiac pacemaker; Z95.1 Presence of aortocoronary bypass graft; Z79.82 Long term (current) use of aspirin; Z79.899 Other long term (current) drug therapy; Z88.8 Allergy status to other drugs, medicaments and biological substances; Z87.891 Personal history of nicotine dependence
CPT/HCPCS: 96372; Q5106

== ENCOUNTER 2024-11-20 04:00 | Day surgery (SDC) | payer OTHER ==
[2024-11-20] MEDS ORDERED: Epoetin Alfa-EPBX 10,000 Unit/ML 1ML Vial SC SCH (06:00)
[2024-11-20 08:39] VITALS: BP 145/63
== END 2024-11-20 08:47 | disposition home or self-care (01) ==
LOC: ATC 04:00
DX: I12.9 Hypertensive chronic kidney disease with stage 1 through stage 4 chronic kidney disease, or unspecified chronic kidney disease (principal); E11.22 Type 2 diabetes mellitus with diabetic chronic kidney disease; N18.32 Chronic kidney disease, stage 3b; D63.1 Anemia in chronic kidney disease; N25.81 Secondary hyperparathyroidism of renal origin; E78.5 Hyperlipidemia, unspecified; I25.10 Atherosclerotic heart disease of native coronary artery without angina pectoris; Z87.891 Personal history of nicotine dependence; Z88.8 Allergy status to other drugs, medicaments and biological substances; Z79.82 Long term (current) use of aspirin; Z79.84 Long term (current) use of oral hypoglycemic drugs; Z79.899 Other long term (current) drug therapy
CPT/HCPCS: 96372; Q5106

== ENCOUNTER → 2024-12-10 | Outpatient (CLI) | payer OTHER ==
[2024-12-10 19:49] LABS: Microalb/Creat Ratio UR, Rand 427.338 mg/g (0.000-30.000)
== END ==
LOC: LAB SHORT 10:32 → LAB 10:32
PROVIDERS: Family Medicine
DX: R31.9 Hematuria, unspecified (principal); E11.21 Type 2 diabetes mellitus with diabetic nephropathy
CPT/HCPCS: 82043; 82570; 87086

== ENCOUNTER 2024-12-11 06:54 | Day surgery (SDC) | payer OTHER ==
[~2024-12-11 06:54] MED LIST changes: +Epoetin Alfa-EPBX 10,000 Unit/ML 1ML Vial SC SCH
[2024-12-11 08:25] VITALS: BP 128/58
== END 2024-12-11 08:31 | disposition home or self-care (01) ==
LOC: ATC 06:54
DX: E11.22 Type 2 diabetes mellitus with diabetic chronic kidney disease (principal); I12.9 Hypertensive chronic kidney disease with stage 1 through stage 4 chronic kidney disease, or unspecified chronic kidney disease; N18.32 Chronic kidney disease, stage 3b; D63.1 Anemia in chronic kidney disease; I25.10 Atherosclerotic heart disease of native coronary artery without angina pectoris; N25.81 Secondary hyperparathyroidism of renal origin; E78.5 Hyperlipidemia, unspecified; Z95.1 Presence of aortocoronary bypass graft; Z79.82 Long term (current) use of aspirin; Z79.899 Other long term (current) drug therapy; Z88.8 Allergy status to other drugs, medicaments and biological substances; Z87.891 Personal history of nicotine dependence
CPT/HCPCS: 96372; Q5106

== ENCOUNTER 2025-01-22 02:41 | Day surgery (SDC) | payer OTHER ==
[~2025-01-22 02:41] MED LIST changes: -Epoetin Alfa-EPBX 10,000 Unit/ML 1ML Vial SC SCH
[2025-01-22] MEDS ORDERED: Epoetin Alfa-EPBX 10,000 Unit/ML 1ML Vial SC SCH (06:00)
== END 2025-01-22 08:42 | disposition home or self-care (01) ==
LOC: ATC 02:41
DX: I12.9 Hypertensive chronic kidney disease with stage 1 through stage 4 chronic kidney disease, or unspecified chronic kidney disease (principal); E11.22 Type 2 diabetes mellitus with diabetic chronic kidney disease; N18.32 Chronic kidney disease, stage 3b; D63.1 Anemia in chronic kidney disease; N25.81 Secondary hyperparathyroidism of renal origin; I25.10 Atherosclerotic heart disease of native coronary artery without angina pectoris; E78.5 Hyperlipidemia, unspecified; Z87.891 Personal history of nicotine dependence; Z79.82 Long term (current) use of aspirin; Z79.84 Long term (current) use of oral hypoglycemic drugs; Z79.899 Other long term (current) drug therapy; Z88.8 Allergy status to other drugs, medicaments and biological substances; Z95.0 Presence of cardiac pacemaker; Z95.1 Presence of aortocoronary bypass graft; Z95.2 Presence of prosthetic heart valve
CPT/HCPCS: 96372; Q5106

== ENCOUNTER 2025-02-05 03:08 | Day surgery (SDC) | payer OTHER ==
[2025-02-05] MEDS ORDERED: Epoetin Alfa-EPBX 10,000 Unit/ML 1ML Vial SC SCH (06:00)
== END 2025-02-05 08:39 | disposition home or self-care (01) ==
LOC: ATC 03:08
DX: E11.22 Type 2 diabetes mellitus with diabetic chronic kidney disease (principal); D63.1 Anemia in chronic kidney disease; N18.32 Chronic kidney disease, stage 3b; N25.81 Secondary hyperparathyroidism of renal origin; I12.9 Hypertensive chronic kidney disease with stage 1 through stage 4 chronic kidney disease, or unspecified chronic kidney disease; I25.10 Atherosclerotic heart disease of native coronary artery without angina pectoris; E78.5 Hyperlipidemia, unspecified; Z95.1 Presence of aortocoronary bypass graft; Z95.0 Presence of cardiac pacemaker; Z87.891 Personal history of nicotine dependence; Z79.82 Long term (current) use of aspirin; Z79.84 Long term (current) use of oral hypoglycemic drugs; Z79.899 Other long term (current) drug therapy; Z88.8 Allergy status to other drugs, medicaments and biological substances; Z98.52 Vasectomy status
CPT/HCPCS: 96372; Q5106

== ENCOUNTER 2025-02-19 04:25 | Day surgery (SDC) | payer OTHER ==
[2025-02-19] MEDS ORDERED: Epoetin Alfa-EPBX 10,000 Unit/ML 1ML Vial SC SCH (06:00)
[2025-02-19 08:35] VITALS: BP 131/62
== END 2025-02-19 08:36 | disposition home or self-care (01) ==
LOC: ATC 04:25
DX: I12.9 Hypertensive chronic kidney disease with stage 1 through stage 4 chronic kidney disease, or unspecified chronic kidney disease (principal); N18.32 Chronic kidney disease, stage 3b; D63.1 Anemia in chronic kidney disease; E11.22 Type 2 diabetes mellitus with diabetic chronic kidney disease; I25.10 Atherosclerotic heart disease of native coronary artery without angina pectoris; Z79.899 Other long term (current) drug therapy; Z79.82 Long term (current) use of aspirin; Z79.84 Long term (current) use of oral hypoglycemic drugs; Z88.8 Allergy status to other drugs, medicaments and biological substances; Z91.048 Other nonmedicinal substance allergy status; Z87.891 Personal history of nicotine dependence
CPT/HCPCS: 96372; Q5106

== ENCOUNTER 2025-03-21 02:44 | Day surgery (SDC) | payer OTHER ==
[2025-03-21] MEDS ORDERED: Epoetin Alfa-EPBX 10,000 Unit/ML 1ML Vial SC SCH (06:00)
[2025-03-21 08:58] VITALS: BP 134/72
== END 2025-03-21 09:03 | disposition home or self-care (01) ==
LOC: ATC 02:44
DX: I12.9 Hypertensive chronic kidney disease with stage 1 through stage 4 chronic kidney disease, or unspecified chronic kidney disease (principal); E11.22 Type 2 diabetes mellitus with diabetic chronic kidney disease; N18.32 Chronic kidney disease, stage 3b; D63.1 Anemia in chronic kidney disease; N25.81 Secondary hyperparathyroidism of renal origin; I25.10 Atherosclerotic heart disease of native coronary artery without angina pectoris; E78.5 Hyperlipidemia, unspecified; D47.2 Monoclonal gammopathy; Z87.891 Personal history of nicotine dependence; Z95.0 Presence of cardiac pacemaker; Z95.1 Presence of aortocoronary bypass graft; Z79.82 Long term (current) use of aspirin; Z79.84 Long term (current) use of oral hypoglycemic drugs; Z79.899 Other long term (current) drug therapy; Z88.8 Allergy status to other drugs, medicaments and biological substances; Z98.52 Vasectomy status
CPT/HCPCS: 96372; Q5106

== ENCOUNTER 2025-04-04 09:29 | Day surgery (SDC) | payer OTHER ==
[~2025-04-04 09:29] MED LIST changes: +Epoetin Alfa-EPBX 10,000 Unit/ML 1ML Vial SC SCH
[2025-04-04 10:42] VITALS: BP 145/65
== END 2025-04-04 10:48 | disposition home or self-care (01) ==
LOC: ATC 09:29
DX: I12.9 Hypertensive chronic kidney disease with stage 1 through stage 4 chronic kidney disease, or unspecified chronic kidney disease (principal); E11.22 Type 2 diabetes mellitus with diabetic chronic kidney disease; N18.32 Chronic kidney disease, stage 3b; D63.1 Anemia in chronic kidney disease; N25.81 Secondary hyperparathyroidism of renal origin; I25.10 Atherosclerotic heart disease of native coronary artery without angina pectoris; E78.5 Hyperlipidemia, unspecified; Z87.891 Personal history of nicotine dependence; Z95.0 Presence of cardiac pacemaker; Z95.1 Presence of aortocoronary bypass graft; Z79.82 Long term (current) use of aspirin; Z79.84 Long term (current) use of oral hypoglycemic drugs; Z79.899 Other long term (current) drug therapy; Z88.8 Allergy status to other drugs, medicaments and biological substances
CPT/HCPCS: 96372; Q5106

== ENCOUNTER 2025-04-18 00:07 | Day surgery (SDC) | payer OTHER ==
[2025-04-18 08:26] VITALS: BP 132/67
== END 2025-04-18 08:30 | disposition home or self-care (01) ==
LOC: ATC 00:07
DX: I12.9 Hypertensive chronic kidney disease with stage 1 through stage 4 chronic kidney disease, or unspecified chronic kidney disease (principal); E11.22 Type 2 diabetes mellitus with diabetic chronic kidney disease; N18.32 Chronic kidney disease, stage 3b; D63.1 Anemia in chronic kidney disease; I25.10 Atherosclerotic heart disease of native coronary artery without angina pectoris; E78.5 Hyperlipidemia, unspecified; Z79.899 Other long term (current) drug therapy; Z91.048 Other nonmedicinal substance allergy status; Z88.8 Allergy status to other drugs, medicaments and biological substances; Z87.891 Personal history of nicotine dependence
CPT/HCPCS: 96372; Q5106

== ENCOUNTER 2025-05-02 01:08 | Day surgery (SDC) | payer OTHER ==
[~2025-05-02 01:08] MED LIST changes: -Epoetin Alfa-EPBX 10,000 Unit/ML 1ML Vial SC SCH
[2025-05-02] MEDS ORDERED: Epoetin Alfa-EPBX 10,000 Unit/ML 1ML Vial SC SCH (06:00)
[2025-05-02 08:36] VITALS: BP 167/75
== END 2025-05-02 08:41 | disposition home or self-care (01) ==
LOC: ATC 01:08
DX: I12.9 Hypertensive chronic kidney disease with stage 1 through stage 4 chronic kidney disease, or unspecified chronic kidney disease (principal); E11.22 Type 2 diabetes mellitus with diabetic chronic kidney disease; N18.32 Chronic kidney disease, stage 3b; D63.1 Anemia in chronic kidney disease; N25.81 Secondary hyperparathyroidism of renal origin; I25.10 Atherosclerotic heart disease of native coronary artery without angina pectoris; E78.5 Hyperlipidemia, unspecified; Z79.82 Long term (current) use of aspirin; Z79.84 Long term (current) use of oral hypoglycemic drugs; Z79.899 Other long term (current) drug therapy; Z88.8 Allergy status to other drugs, medicaments and biological substances; Z87.891 Personal history of nicotine dependence; Z95.0 Presence of cardiac pacemaker; Z95.1 Presence of aortocoronary bypass graft; Z98.52 Vasectomy status
CPT/HCPCS: 96372; Q5106

== ENCOUNTER 2025-05-16 00:39 | Day surgery (SDC) | payer OTHER ==
[2025-05-16] MEDS ORDERED: Epoetin Alfa-EPBX 10,000 Unit/ML 1ML Vial SC SCH (06:00)
[2025-05-16 08:30] VITALS: BP 129/64
== END 2025-05-16 08:37 | disposition home or self-care (01) ==
LOC: ATC 00:39
DX: I12.9 Hypertensive chronic kidney disease with stage 1 through stage 4 chronic kidney disease, or unspecified chronic kidney disease (principal); E11.22 Type 2 diabetes mellitus with diabetic chronic kidney disease; N18.32 Chronic kidney disease, stage 3b; D63.1 Anemia in chronic kidney disease; I25.10 Atherosclerotic heart disease of native coronary artery without angina pectoris; E78.5 Hyperlipidemia, unspecified; Z79.899 Other long term (current) drug therapy; Z88.8 Allergy status to other drugs, medicaments and biological substances; Z87.891 Personal history of nicotine dependence
CPT/HCPCS: 96372; Q5106

== ENCOUNTER 2025-05-30 00:39 | Day surgery (SDC) | payer OTHER ==
[2025-05-30] MEDS ORDERED: Epoetin Alfa-EPBX 10,000 Unit/ML 1ML Vial SC SCH (06:00)
[2025-05-30 08:31] VITALS: BP 160/71
[2025-05-30 08:35] VITALS: BP 140/66
== END 2025-05-30 08:37 | disposition home or self-care (01) ==
LOC: ATC 00:39
DX: I12.9 Hypertensive chronic kidney disease with stage 1 through stage 4 chronic kidney disease, or unspecified chronic kidney disease (principal); E11.22 Type 2 diabetes mellitus with diabetic chronic kidney disease; N18.32 Chronic kidney disease, stage 3b; D63.1 Anemia in chronic kidney disease; I25.10 Atherosclerotic heart disease of native coronary artery without angina pectoris; E78.5 Hyperlipidemia, unspecified; Z88.8 Allergy status to other drugs, medicaments and biological substances; Z79.82 Long term (current) use of aspirin; Z79.84 Long term (current) use of oral hypoglycemic drugs; Z87.891 Personal history of nicotine dependence
CPT/HCPCS: 96372; 99211; Q5106

== ENCOUNTER 2025-06-13 01:13 | Day surgery (SDC) | payer OTHER ==
[2025-06-13] MEDS ORDERED: Epoetin Alfa-EPBX 10,000 Unit/ML 1ML Vial SC SCH (06:00)
[2025-06-13 08:33] VITALS: BP 138/61
== END 2025-06-13 08:39 | disposition home or self-care (01) ==
LOC: ATC 01:13
DX: I12.9 Hypertensive chronic kidney disease with stage 1 through stage 4 chronic kidney disease, or unspecified chronic kidney disease (principal); E11.22 Type 2 diabetes mellitus with diabetic chronic kidney disease; N18.32 Chronic kidney disease, stage 3b; D63.1 Anemia in chronic kidney disease; N25.81 Secondary hyperparathyroidism of renal origin; I25.10 Atherosclerotic heart disease of native coronary artery without angina pectoris; E78.5 Hyperlipidemia, unspecified; Z95.0 Presence of cardiac pacemaker; Z79.82 Long term (current) use of aspirin; Z79.84 Long term (current) use of oral hypoglycemic drugs; Z79.899 Other long term (current) drug therapy; Z87.891 Personal history of nicotine dependence
CPT/HCPCS: 96372; 99211; Q5106

== ENCOUNTER 2025-06-27 03:23 | Day surgery (SDC) | payer OTHER ==
[2025-06-27] MEDS ORDERED: Epoetin Alfa-EPBX 10,000 Unit/ML 1ML Vial SC SCH (06:00)
[2025-06-27 08:32] VITALS: BP 127/67
== END 2025-06-27 08:42 | disposition home or self-care (01) ==
LOC: ATC 03:23
DX: I12.9 Hypertensive chronic kidney disease with stage 1 through stage 4 chronic kidney disease, or unspecified chronic kidney disease (principal); E11.22 Type 2 diabetes mellitus with diabetic chronic kidney disease; N18.32 Chronic kidney disease, stage 3b; D63.1 Anemia in chronic kidney disease; N25.81 Secondary hyperparathyroidism of renal origin; I25.10 Atherosclerotic heart disease of native coronary artery without angina pectoris; E78.5 Hyperlipidemia, unspecified; Z95.0 Presence of cardiac pacemaker; Z87.891 Personal history of nicotine dependence; Z79.82 Long term (current) use of aspirin; Z79.84 Long term (current) use of oral hypoglycemic drugs; Z79.899 Other long term (current) drug therapy; Z88.8 Allergy status to other drugs, medicaments and biological substances
CPT/HCPCS: 36415; 80069; 84155; 84165; 85025; 85045; 86140; 86334; 96372; 99211; Q5106